=== PATIENT | female | born 1945 | race Caucasian/White ===

== ENCOUNTER 2022-02-24 00:58 | Observation (INO) ==
[2022-02-24 01:53] LABS: Basophils # 0.1 10*3/uL (0.0-0.2); Basophils % 0.8 % (0.0-0.8); Eosinophils # 0.3 10*3/uL (0.0-0.87); Eosinophils % 3.9 % (0.00-10.9); Hematocrit 33.7 VOL% (35.7-47.0); Hemoglobin 11.2 GM/DL (12.0-16.0); Immature Granulocytes % 0.5 %; Immature Granulocytes Absolute 0.04 #; Lymphocytes # 1.5 10*3/uL (1.4-4.0); Lymphocytes % 19.8 % (21.3-54.2); Mean Corpuscular HGB Conc 33.2 GM/DL (32-36); Mean Corpuscular Volume 96.6 FL (87-102); Mean Platelet Volume 10.3 FL (9.6-12.0); Monocytes # 0.8 10*3/uL (0.11-0.8); Monocytes % 10.1 % (1.7-12.7); Neutrophils % 64.9 % (38.7-73.9); Platelet Count 281 T/CUMM (130-400); Red Blood Count 3.49 MC/CUMM (3.8-5.5); Red Cell Distribution Width 13.7 % (9.3-17.3); White Blood Count 7.5 T/CUMM (4-12)
[2022-02-24 02:03] LABS: PT Patient Result 11.2 SECS (10.5-12.0); Partial Thromboplastin Time 33.9 SECS (23.8-32.1)
[2022-02-24 02:16] LABS: Alanine Aminotransferase 22 U/L (13-56); Albumin 3.5 G/DL (3.4-5.0); Alkaline Phosphatase 87 U/L (45-117); Aspartate Amino Transferase 19 U/L (0-37); Bilirubin,Total < 0.39 MG/DL (0.20-1.00); Blood Urea Nitrogen 26 MG/DL (7-18); Calcium 9.6 MG/DL (8.5-10.1); Carbon Dioxide 28 MMOL/L (21-32); Chloride 103 MMOL/L (98-107); Glucose 118 MG/DL (74-106); Osmolality,Calculated 278.8 MOS/KG (273-304); Potassium 4.2 MMOL/L (3.5-5.1); Sodium 137 MMOL/L (136-145); Total Protein 6.8 G/DL (6.4-8.2)
[2022-02-24 03:08] LABS: Free T4 (Free Thyroxine) 1.2 NG/DL (0.76-1.46); Thyroid Stimulating Hormone 3.22 uIU/ml (0.358-3.74)
[2022-02-24] MEDS ORDERED: ASPIRIN 325 MG TABLET PO STA (03:19)
[2022-02-24] MEDS ORDERED: ONDANSETRON 4 MG/2 ML VIAL IV PRN (03:19)
[2022-02-24] MEDS ORDERED: GLUCAGON 1 MG VIAL IM PRN (03:19)
[2022-02-24] MEDS ORDERED: ACETAMINOPHEN 325 MG TABLET PO PRN (03:19)
[2022-02-24] MEDS ORDERED: MORPHINE 2 MG/1 ML SYRINGE IV PRN (03:19)
[2022-02-24] MEDS ORDERED: DEXTROSE 10% 250 ML BAG IV PRN (03:19)
[2022-02-24] MEDS: PANTOPRAZOLE 40 MG TABLET PO SCH (11:40)
[2022-02-24] MEDS: APIXABAN 5 MG TABLET PO SCH ×2 (11:40→20:15)
[2022-02-24] MEDS: INSULIN LISPRO 100 UNIT/ML SUBCUT SCH ×3 (15:56→20:32)
[2022-02-24] MEDS: BRIMONIDINE/TIMOLOL OPH SOLN 5 ML BOTTLE BOTH EYES SCH (18:44)
[2022-02-24] MEDS: metFORMIN 500 MG TABLET PO SCH (20:14)
[2022-02-24] MEDS: GABAPENTIN 300 MG CAPSULE PO SCH (20:15)
[2022-02-25 05:16] LABS: Basophils # 0.1 10*3/uL (0.0-0.2); Basophils % 0.7 % (0.0-0.8); Eosinophils # 0.3 10*3/uL (0.0-0.87); Eosinophils % 4.5 % (0.00-10.9); Hematocrit 35.7 VOL% (35.7-47.0); Hemoglobin 11.5 GM/DL (12.0-16.0); Immature Granulocytes % 0.4 %; Immature Granulocytes Absolute 0.03 #; Lymphocytes # 1.3 10*3/uL (1.4-4.0); Lymphocytes % 17.5 % (21.3-54.2); Mean Corpuscular HGB Conc 32.2 GM/DL (32-36); Mean Corpuscular Volume 96.5 FL (87-102); Mean Platelet Volume 10.2 FL (9.6-12.0); Monocytes # 0.7 10*3/uL (0.11-0.8); Monocytes % 8.8 % (1.7-12.7); Neutrophils % 68.1 % (38.7-73.9); Platelet Count 276 T/CUMM (130-400); Red Cell Distribution Width 13.3 % (9.3-17.3); White Blood Count 7.6 T/CUMM (4-12)
[2022-02-25 05:29] LABS: Osmolality,Calculated 282.3 MOS/KG (273-304); Potassium 4.1 MMOL/L (3.5-5.1)
[2022-02-25] MEDS: INSULIN LISPRO 100 UNIT/ML SUBCUT SCH ×4 (09:30→21:37)
[2022-02-25] MEDS: BRIMONIDINE/TIMOLOL OPH SOLN 5 ML BOTTLE BOTH EYES SCH (09:41)
[2022-02-25] MEDS: PANTOPRAZOLE 40 MG TABLET PO SCH (09:42)
[2022-02-25] MEDS: metFORMIN 500 MG TABLET PO SCH ×2 (09:43→21:36)
[2022-02-25] MEDS: APIXABAN 5 MG TABLET PO SCH ×2 (09:43→21:36)
[2022-02-25] MEDS ORDERED: ATORVASTATIN 40 MG TABLET PO SCH (21:00)
[2022-02-25] MEDS: GABAPENTIN 300 MG CAPSULE PO SCH (21:36)
[2022-02-26] MEDS: INSULIN LISPRO 100 UNIT/ML SUBCUT SCH ×2 (08:32→13:12)
[2022-02-26 08:44] VITALS: BP 118/69
[2022-02-26] MEDS: metFORMIN 500 MG TABLET PO SCH (08:51)
[2022-02-26] MEDS: APIXABAN 5 MG TABLET PO SCH (08:51)
[2022-02-26] MEDS: PANTOPRAZOLE 40 MG TABLET PO SCH (08:51)
[2022-02-26] MEDS: BRIMONIDINE/TIMOLOL OPH SOLN 5 ML BOTTLE BOTH EYES SCH (08:52)
[2022-02-26] MEDS ORDERED: AMIODARONE 200 MG TABLET PO SCH (09:00)
[2022-02-27] MEDS ORDERED: ASPIRIN EC 81 MG TABLET PO SCH (09:00)
== END 2022-02-26 13:18 | disposition home or self-care (01) ==
LOC: N.EDINP 00:58 → N.ED 00:58 → SUATTDRO 03:19 → N.TELEN 15:15
PROVIDERS: ADMIT Hospitalist; ATTEND Family Medicine